=== PATIENT | male | born 1945 | race Caucasian/White ===

== ENCOUNTER → 2017-10-08 17:28 | Outpatient (CLI) | payer MEDICARE, MEDICAID, SELFPAY ==
[2017-10-07 13:57] LABS: Anion Gap 8 (5-15); BUN 14 mg/dL (7-18); BUN/Creat Ratio 16.8 RATIO (10-20); Calcium,Total 8.9 mg/dL (8.5-10.1); Chloride 106 mmol/L (98-107); Creatinine, Serum 0.83 mg/dL (0.70-1.30); EST Glomerular Filtration Rate 96 mL/min (>60); Est Glom Filt Rate - Afr Amer 116 mL/min (>60); Glucose 92 mg/dL (74-106); Magnesium 2.4 mg/dL (1.6-2.6); Potassium 3.6 mmol/L (3.5-5.1); Sodium Level 141 mmol/L (136-145)
--- NOTE | 2017-10-08 17:30 | CT_ITS ---
STUDY: CTA CHEST REASON FOR EXAM: Male, 72 years old. TAA RADIATION DOSAGE (If Supplied By Facility): CTDIvol = ( 12.29 ) mGy, DLP = ( 625.12 ) mGycm TECHNIQUE: The examination was performed with the intravenous administration of 100ML ml of Isovue 370 contrast material. Post-processing of the angiographic images was performed, with multiplanar reformation and 3D reconstruction. Individualized dose optimization techniques were used for this CT. COMPARISON: April 16, 2017 FINDINGS: There is no pneumothorax. There are emphysematous changes of the lungs with emphysematous blebs. There is no demonstrated pleural abnormality. The thyroid is heterogenous. It contains nodules. This should be further evaluated with ultrasound. This can be performed as an outpatient. Stable left pleural scarring. Normal heart and pericardium. Normal mediastinum. Normal hilar regions. Normal pulmonary arteries. There is atherosclerotic calcification of the aortic arch with tortuosity and elongation of the aortic arch and descending thoracic aorta. Stable aneurysmal dilation of the ascending thoracic aorta measuring 39 mm There are multi-level degenerative changes of the thoracic spine. There is diffuse fatty infiltration of the liver. CT/CTA Chest W/WO Contrast IMPRESSION: No demonstrated pulmonary embolism or arterial dissection. Fatty liver. The thyroid is heterogenous. It contains nodules. This should be further evaluated with ultrasound. This can be performed as an outpatient. Electronically Signed: Issa Flores MD at 18:53 EST , Service support ,
== END ==
PROVIDERS: Family Provider Preventive Medicine Occupational Medicine; PCP Preventive Medicine Occupational Medicine
DX: I71.2 Thoracic aortic aneurysm, without rupture (principal); E83.42 Hypomagnesemia
CPT/HCPCS: 36415; 71275; 80048; 83735; Q9967

== ENCOUNTER → 2018-02-03 10:27 | Outpatient (CLI) | payer MEDICARE, MEDICAID, SELFPAY ==
[2018-02-03 11:23] LABS: PSA,Total- Diagnostic < 0.01 ng/mL (0.0-4.0)
== END ==
PROVIDERS: Family Provider Preventive Medicine Occupational Medicine; PCP Preventive Medicine Occupational Medicine; Visit Provider Urology
DX: C61 Malignant neoplasm of prostate (principal)
CPT/HCPCS: 36415; 84153

== ENCOUNTER → 2018-04-15 14:23 | Outpatient (CLI) | payer MEDICARE, MEDICAID, SELFPAY ==
[2018-04-15 15:11] LABS: Hematocrit 43.1 % (40-54); Hemoglobin 14.3 g/dl (13.0-16.5); Mean Corp Hgb Conc 33.2 g/gl (32-36); Mean Corpuscular Hgb 32.6 pg (27.0-32.0); Mean Corpuscular Volume 98.2 fL (80-94); Mean Platelet Vol. 11.7 fl (6.2-12.0); Platelet Count 206 K/mm3 (150-450); RBC Distribution Width CV 13.2 % (11.6-14.6); RBC Distribution Width SD 46.8 fl (35.1-43.9); Red Blood Count 4.39 M/mm3 (4.6-6.2); White Blood Count 8.6 K/mm3 (4.4-11.0)
[2018-04-15 15:18] LABS: Scan Indicated on CBC? Y/N NO
[2018-04-15 15:37] LABS: Anion Gap 12 (5-15); BUN 10 mg/dL (7-18); BUN/Creat Ratio 12.2 RATIO (10-20); Calcium,Total 8.6 mg/dL (8.5-10.1); Chloride 107 mmol/L (98-107); Creatinine, Serum 0.82 mg/dL (0.70-1.30); EST Glomerular Filtration Rate 97 mL/min (>60); Est Glom Filt Rate - Afr Amer 117 mL/min (>60); Glucose 83 mg/dL (74-106); Potassium 3.7 mmol/L (3.5-5.1); Sodium Level 144 mmol/L (136-145)
== END ==
PROVIDERS: Family Provider Preventive Medicine Occupational Medicine; PCP Preventive Medicine Occupational Medicine
DX: F11.20 Opioid dependence, uncomplicated (principal)
CPT/HCPCS: 36415; 80048; 83735; 85027

== ENCOUNTER → 2018-05-19 14:18 | Outpatient (CLI) | payer MEDICARE, MEDICAID, SELFPAY ==
[2018-05-23 09:07] LABS: Alternaria alternata <0.10 kU/L (Class 0); Aspergillus fumigatus <0.10 kU/L (Class 0); Bahia Grass <0.10 kU/L (Class 0); Bermuda Grass <0.10 kU/L (Class 0); Bluegrass, Kentucky <0.10 kU/L (Class 0); Cat Hair/Dander, Standard <0.10 kU/L (Class 0); Cedar, Mountain <0.10 kU/L (Class 0); Cladosporium herbarum <0.10 kU/L (Class 0); Cockroach, American <0.10 kU/L (Class 0); D farinae Mite <0.10 kU/L (Class 0); D pteronyssinus <0.10 kU/L (Class 0); Dog Epithelia <0.10 kU/L (Class 0); Elm, American White <0.10 kU/L (Class 0); Hazelnut Tree <0.10 kU/L (Class 0); Hickory, White <0.10 kU/L (Class 0); Johnson Grass <0.10 kU/L (Class 0); Maple/Box Elder <0.10 kU/L (Class 0); Mucor racemosus <0.10 kU/L (Class 0); Mugwort <0.10 kU/L (Class 0); Mulberry, White <0.10 kU/L (Class 0); Oak, White <0.10 kU/L (Class 0); Penicillium chrysogen <0.10 kU/L (Class 0); Pigweed, Rough <0.10 kU/L (Class 0); Plantain, English <0.10 kU/L (Class 0); Ragweed, Short/Common <0.10 kU/L (Class 0); Sheep Sorrel(Dock) <0.10 kU/L (Class 0); Stemphylium herbarum <0.10 kU/L (Class 0); Sweet Gum <0.10 kU/L (Class 0); Sycamore, American <0.10 kU/L (Class 0)
[2018-05-23 11:31] LABS: Nettle <0.10 kU/L (Class 0)
== END ==
PROVIDERS: Family Provider Preventive Medicine Occupational Medicine; PCP Preventive Medicine Occupational Medicine; Referring Provider Internal Medicine Pulmonary Disease; Visit Provider Internal Medicine Pulmonary Disease
DX: T78.40XA Allergy, unspecified, initial encounter (principal); J44.9 Chronic obstructive pulmonary disease, unspecified
CPT/HCPCS: 36415; 86003

== ENCOUNTER → 2018-07-27 15:25 | Outpatient (CLI) | payer MEDICARE, MEDICAID, SELFPAY ==
[2018-07-27 17:20] LABS: PSA,Total- Diagnostic < 0.01 ng/mL (0.0-4.0)
== END ==
PROVIDERS: Family Provider Preventive Medicine Occupational Medicine; PCP Preventive Medicine Occupational Medicine; Referring Provider Urology; Visit Provider Urology
DX: C61 Malignant neoplasm of prostate (principal)
CPT/HCPCS: 36415; 84153

== ENCOUNTER → 2018-10-20 12:47 | Outpatient (CLI) | payer MEDICARE, MEDICAID, SELFPAY ==
--- NOTE | 2018-10-20 12:53 | CT_ITS ---
STUDY: CTA CHEST REASON FOR EXAM: Male, 73 years old. Aortic aneurysm follow-up. RADIATION DOSAGE (If Supplied By Facility): CTDIvol = ( 21.38 ) mGy, DLP = ( 501.01 ) mGycm TECHNIQUE: The examination was performed with the intravenous administration of Isovue 370 100 IV. Post-processing of the angiographic images was performed, with multiplanar reformation and 3D reconstruction. Individualized dose optimization techniques were used for this CT. COMPARISON: 04/16/2017, 10/08/2017.. FINDINGS: Normal enhancement of the main pulmonary artery and right and left pulmonary arteries. Normal enhancement of the bilateral peripheral pulmonary arteries. There is no demonstrated pulmonary embolism. Continued, but stable ectasia of the SMA aorta with greatest diameter of approximately 4 cm. There is no demonstrated aortic dissection. Normal heart and pericardium. Normal mediastinum. Normal hilar regions. Normal visualized trachea and bronchi. The lungs are hyper expanded, with flattening of the hemidiaphragms. There is evidence for centrilobular emphysema. There is a new 1.3 cm somewhat spiculated density in the left apex, coronal image 179 and axial image 222. A small neoplasm is a possibility. Suggest further evaluation such as PET scan. Stable 7 mm microspiculated nodule also in the superior segment of the left lower lobe, axial image 198. Stable focal areas of linear vertical scarring in the medial right lower lobe. No effusions. Normal chest wall structures. There are degenerative changes of thoracic spine. There is demineralization. There is ankylosis across the thoracic spine. Normal visualized upper abdomen. CT/CTA Chest W/WO Contrast IMPRESSION: Normal CTA chest examination, without a demonstrated pulmonary embolism or arterial dissection. Stable ectasia of the ascending aorta. COPD. Suspicious 1.3 cm spiculated nodule on the left apex. Suggest further evaluation such as PET scan. Electronically Signed: Remy Salinas MD at 15:53 EST , Service support ,
== END ==
PROVIDERS: Family Provider Preventive Medicine Occupational Medicine; PCP Preventive Medicine Occupational Medicine; Referring Provider Nurse Practitioner Family; Visit Provider Nurse Practitioner Family
DX: I71.2 Thoracic aortic aneurysm, without rupture (principal)
CPT/HCPCS: 71275; Q9967

== ENCOUNTER → 2018-10-29 07:04 | Outpatient (CLI) | payer MEDICARE, MEDICAID, SELFPAY ==
--- NOTE | 2018-10-29 08:00 | PET_ITS ---
EXAMINATION: FDG PET CT INDICATIONS: A 73-year-old male with reported history of carcinoma of the prostate presenting for restaging examination and evaluation of pulmonary nodularity. COMPARISON EXAMINATION: CT of the chest report dated 10/20/18. INDEX LESION SIZE SUV INTERPRETATION Right lower posterior lung field, right lower lobe (n = 1) 0.9 Quantitative criteria for viable neoplasm are not fulfilled TECHNIQUE: Following the intravenous administration of 18.15 mCi of F-18 deoxyglucose via the right antecubital fossa, multiplanar image acquisitions of the neck, chest, abdomen and pelvis to level of mid thigh, obtained at one hour post radiopharmaceutical administration contemporaneously interpreted with the current CT of the neck, chest, abdomen and pelvis to level of mid thigh, dated 10/29/[address] of the chest report dated 10/20/18 reveal: SERUM GLUCOSE LEVEL: 88 mg/dl. HEIGHT: 65 inches. WEIGHT: 175 lbs. FINDINGS: 1. Barely perceptible increased glucose metabolism is defined in the right lower posteromedial hemithorax pulmonary parenchyma, right lower lobe generating a calculated maximum standard uptake value of 0.9. Quantitative criteria for viable pulmonary parenchymal neoplasm are not fulfilled. 2. Normal physiologic distribution of the radiopharmaceutical is apparent in the hepatic (3.3) and splenic parenchyma, both renal units, bladder and visualized intestinal tract. There is uniform distribution of the radiopharmaceutical concentration defined in the visualized cerebellar hemispheres and cerebral cortical structures.? Diffuse intestinal tract activity is noted throughout all four quadrants of the abdominal-pelvic retroperitoneum, mesentery consistent with normal physiologic distribution of the radiopharmaceutical. Prominent radiopharmaceutical concentration is noted caudal to the urinary bladder contiguous to the distribution of the prostatic urethra. Pertinent CT findings are as follows. CHEST: Noncalcified parenchymal densities noted in the superior segment of the left lower lobe in two separate nodular presentations adjacent and in proximity to the oblique fissure, the right mid posteromedial lung field, right upper lobe and the posterobasilar segment of the right lower lobe demonstrate no evidence of quantitatively significant, discernible increased glucose metabolism. Atherosclerotic calcification is defined in the thoracic aorta. The maximal axial diameter of the ascending thoracic aorta is 41.1 mm (AP). Coronary arterial calcification is observed. Centrilobular emphysematous change is noted in the bilateral upper lung zones. ABDOMEN AND PELVIS: Atherosclerotic calcification is defined in the abdominal aorta without evidence of dilatation, aneurysm formation. Pelvic arterial calcification is observed. Bilateral subcentimeter inguinal soft tissue densities are non-glucose avid. Postsurgical changes are defined in the lower pelvis in the region of the prostate bed. Colonic diverticulosis is defined. SKELETAL: Degenerative changes defined in the cervical, thoracic and lumbar spine demonstrate no evidence for glucose hypermetabolism. PET/PET/CT Tumor Base -Thigh Init IMPRESSION: 1. NEGATIVE EXAMINATION. There is no definitive quantitative scintigraphic evidence of recurrent-metastatic viable neoplasm. 2. Barely perceptible increased glucose concentration observed in the right lower posterior lung zone, right lower lobe does not fulfill quantitative criteria for viable neoplasm. (Lucas et al, Annals of Internal Medicine, 138:724, 2003). 3. Metabolic and/or anatomic stability may be ensured in the right hemithorax pulmonary parenchymal abnormality with repeat FDG PET study and/or CT of the thorax in 3-6 months in addition to evaluation of non-glucose avid parenchymal densities additionally defined. (Xiu, Journal of Nuclear Medicine 45:88, P2004. Marcelo, Seminars in Thoracic and Cardiovascular Surgery 14:292, 2002). Electronic Signature Nils Perrin D.O. Electronically Signed: Nils Perrin DO at 23:38 EDT Tel , Service support ,
== END ==
PROVIDERS: Family Provider Preventive Medicine Occupational Medicine; PCP Preventive Medicine Occupational Medicine; Referring Provider Nurse Practitioner Family; Visit Provider Nurse Practitioner Family
DX: R91.8 Other nonspecific abnormal finding of lung field (principal)
CPT/HCPCS: 78815; A9552

== ENCOUNTER → 2019-01-24 16:17 | Outpatient (CLI) | payer MEDICARE, MEDICAID, SELFPAY ==
[2019-01-24 17:50] LABS: PSA,Total- Diagnostic < 0.01 ng/mL (0.0-4.0)
== END ==
PROVIDERS: Family Provider Preventive Medicine Occupational Medicine; PCP Preventive Medicine Occupational Medicine; Referring Provider Urology; Visit Provider Urology
DX: C61 Malignant neoplasm of prostate (principal)
CPT/HCPCS: 36415; 84153

== ENCOUNTER 2019-04-26 19:58 | Inpatient (IN) | payer MEDICARE, MEDICAID, SELFPAY ==
[2019-04-26] VITALS (9 sets, daily range): BP systolic 126–134; BP diastolic 70–76; PULSE 78–93; RESP 14–28; TEMP 36.7; O2SAT 94–98; BMI 30.9
--- NOTE | 2019-04-26 20:18 | EKG12_ITS ---
Test Reason : Blood Pressure : / mmHG Vent. Rate : 081 BPM Atrial Rate : 081 BPM P-R Int : 128 ms QRS Dur : 068 ms QT Int : 362 ms P-R-T Axes : 037 035 064 degrees QTc Int : 420 ms Normal sinus rhythm Normal ECG Confirmed by IFEOMA PARIKH ([id number]), editor farm journal CAMELIA THEODORE ([id number]) on 05/01/2019 2:40:39 PM Referred By: Krzysztof Bach Confirmed By:IFEOMA PARIKH
--- NOTE | 2019-04-26 20:18 | RAD_ITS ---
STUDY: X-RAY CHEST REASON FOR EXAM: Male, 74 years old. Short of breath TECHNIQUE: AP portable COMPARISON: None. FINDINGS: Lungs are hyperinflated. There appears to be some minor scarring or subsegmental atelectasis in the right middle lobe. There is no demonstrated pleural abnormality. Normal size heart. Normal mediastinum and renay. Normal visualized pulmonary arteries. Normal visualized aortic arch and descending thoracic aorta. Normal visualized thoracic spine. Normal visualized ribs, clavicles, and shoulders. There is no demonstrated abnormality of the visualized soft tissue structures of the upper abdomen. RAD/Chest 1 View (Portable) IMPRESSION: COPD. Minor subsegmental atelectasis or scarring in the right middle lobe Electronically Signed: Frederick Awad MD at 20:55 EDT , Service support ,
[2019-04-26 20:33] LABS: Absolute Lymphocyte Count 0.77 X10^3/uL (0.83-4.51); Absolute Neutrophil Count 11.1 X10^3/uL (2.0-7.7); Basophil# 0.03 X10^3/uL; Basophil% 0.2 % (0-1); Eosinophil# 0.05 X10^3/uL; Eosinophils% 0.4 % (0-5); Hematocrit 46.9 % (40-54); Hemoglobin 15.6 g/dL (13.0-16.5); Lymphocyte # 0.77 X10^3/ul (4.0); Lymphocyte % 6.1 % (19-41); Mean Corp Hgb Conc 33.3 g/dL (32-36); Mean Corpuscular Hgb 32.2 pg (27.0-32.0); Mean Corpuscular Volume 96.7 fL (80-94); Mean Platelet Vol. 11.8 fl (6.2-12.0); Monocyte% 4.7 % (0-10); NRBC Flagged by Analyzer 0 % (0-5); Neutrophil # 11.09 X10^3/uL (2.7-7.7); Neutrophil % 87.8 % (47-70); Platelet Count 208 K/mm3 (150-450); RBC Distribution Width CV 13.3 % (11.6-14.6); RBC Distribution Width SD 47.8 fl (35.1-43.9); Red Blood Count 4.85 M/mm3 (4.6-6.2); White Blood Count 12.6 K/mm3 (4.4-11.0)
[2019-04-26 20:46] LABS: Anion Gap 6 (5-15); BUN 12 mg/dL (7-18); BUN/Creat Ratio 11.8 RATIO (10-20); Calcium,Total 8.6 mg/dL (8.5-10.1); Chloride 104 mmol/L (98-107); Creatinine, Serum 1.02 mg/dL (0.70-1.30); EST Glomerular Filtration Rate 75 mL/min (>60); Est Glom Filt Rate - Afr Amer 91 mL/min (>60); Estimated Creatinine Clearance 53.59 ml/min; Glucose 109 mg/dL (74-106); International Normalized Ratio 0.9; Potassium 3.5 mmol/L (3.5-5.1); Prothrombin Time (Protime)PT. 12.4 SECONDS (11.7-14.9); Sodium Level 139 mmol/L (136-145)
[2019-04-26] MEDS: Ipratropium/Albuterol Sulfate 3 ML AMPUL.NEB INHALATION (22:03)
[2019-04-26] MEDS: Albuterol 2.5 MG/3 ML VIAL.NEB. INHALATION (22:53)
--- NOTE | 2019-04-26 23:44 | ED.DCSUM_ITS ---
- ER Visit Summary Date of Service: 04/26/19 Chief Complaint: Shortness of breath History of Present Illness: The patient is a 74 M who presents with shortness of breath that began today. Patient has a history of COPD. Patient states she was feeling tightness in his chest. Patient states that he is on oxygen at home. Patient states he started feeling short of breath and took an aerosol at home. Patient states he also took 10 mg of prednisone at that time. Patient states that he was not feeling better so he took 20 mg of prednisone and another aerosol. Patient states this did not help much. Patient called EMS. EMS administered Solu-Medrol 125 mg IV. Patient admits to some chest tightness but denies any specific pain. Patient denies any fevers or chills. Physical Examination: Vital signs are stable except for mild tachypnea of 28. Patient is afebrile. Oral mucosa is pink and moist. Neck is supple. Trachea is midline. There is no JVD noted. Heart was regular rate and rhythm. Lungs showed diffuse expiratory wheezing. There is good respiratory effort noted. Abdomen is soft and nontender. Cranial nerves II through XII are intact. There are no focal motor or sensory deficits noted. Test Results: EKG showed normal sinus rhythm with a rate of 81. There are no acute ST or T wave changes. Portable chest x-ray was obtained. There is COPD and atelectasis versus scarring in the right middle lobe. CBC shows mild leukocytosis of 12.6. Metabolic profile is normal. INR is normal. Troponin is normal. Emergency Department Course and Treatment: Patient was given a DuoNeb aerosol here. Patient was placed on oxygen which she is on at home. Patient had some improvement with this. Patient was given a repeat albuterol aerosol. Patient states he was feeling better on reevaluation. Patient was ambulated here in the emergency department and had a near syncopal episode while ambulating. Patient states that shortness of breath became worse again. Case was discussed with the hospitalist. He will admit the patient to his service. Patient and family understood and were agreeable with the plan. All questions were answered Disposition: Admit to hospital Impression: COPD exacerbation This note was generated with [employer] dictation software. It may contain incorrect words, spelling, and punctuation that were not noted in review of the chart prior to signing ED Disposition - Plan for ED Patient: Disposition: Acute Care Hospital [facility] Diagnosis: COPD exacerbation Referrals: Joe Day DO [Primary Care Provider] -
--- NOTE | 2019-04-26 23:45 | PCM.HP.STD ---
Problem List (1) COPD exacerbation Status: Chronic History of Present Illness Date of Admission: 04/26/19 Chief Complaint: shortness of breath The patient is a 74 year old M with a significant history of COPD on vjhjek-fhv-hbifd oxygen of 2 L and on CPAP with oxygen bled in at night; who prostate cancer status post radiation; and aortic aneurysm who presented to emergency department with 1 day history of progressively worsening shortness of breath. Associated with her symptoms is a chest pain. Also patient check his heart rate of a pulse ox machine and noticed that his heart rate was elevated. He reported his heart rate was 137. Patient took a couple of breathing treatment at home. And although he was on a tapered dose of prednisone 10 mg daily he took an additional 20 mg of his steroid. Shortness of breath worsens when he bends down or when he minimally exert himself. Patient denies any wheezing. He has a chronic productive cough of white sputum. Paramedics brought patient to the emergency department. Paramedics gave patient Solu-Medrol 125 mg. Reportedly patient was started on Daliresp about a week ago. Patient pulmonology is Dr. Flores. Past Medical History Past Medical History (Chronic Problems): Chronic Problems COPD exacerbation (Chronic) COPD (chronic obstructive pulmonary disease) (Chronic) Home oxygen for 5 years. Hypertension (Chronic) Allergic rhinitis (Chronic) Anxiety (Chronic) Hypomagnesemia (Chronic) GERD (gastroesophageal reflux disease) (Chronic) BPH (benign prostatic hypertrophy) (Chronic) Vitamin D deficiency (Chronic) Thoracic aortic aneurysm without rupture (Chronic) 4.3CM. Allergies No Known Allergies Allergy (Verified 04/26/19 19:59) Home Medications: Ambulatory Orders Medication Instructions Recorded Aspirin [Aspirin, Baby] 81 mg PO DAILY@0800 10/13/16 Omeprazole 20 mg PO PRN PRN 10/13/16 Albuterol Aerosols [Ventolin 2.5 mg INHALATION Q2H PRN PRN #0 10/21/16 Aerosols] vial.neb. Ascorbic Acid [Vitamin C] 1,000 mg PO DAILY 03/29/17 Cyanocobalamin (Vitamin B-12) 2,500 mcg PO DAILY 03/29/17 [Vitamin B-12] Finasteride [Proscar] 5 mg PO DAILY 03/29/17 Guaifenesin [Mucinex] 600 mg PO DAILY 03/29/17 Multivitamin [Daily Multiple 1 each PO DAILY 03/29/17 Vitamin] Prednisone 10 mg PO PRN PRN 03/29/17 Fluticasone/Vilanterol [Breo 1 puff IH DAILY 04/26/19 Ellipta 200-25 Mcg INH] Furosemide [Lasix] 20 mg PO DAILY 04/26/19 Lorazepam [Ativan] 0.5 mg PO BID PRN PRN 04/26/19 Roflumilast [Daliresp] 500 mcg PO DAILY 04/26/19 Umeclidinium Skillman [Incruse 1 puff IH DAILY 04/26/19 Ellipta] busPIRone [Buspar] 15 mg PO TID 04/26/19 Surgical History: - - knee surgery, prostate surgery. Psychiatric History: Anxiety Smoking Status: Current every day smoker - *Family History Maternal History Items: Cancer - Breast, Diabetes Paternal History Items: Cancer - Prostate, Diabetes Review of Systems Constitutional: Denies: Chills, Fever, Weight Change HEENT: Denies: Head Aches, Sinus Congestion, Sinus Drainage Cardiovascular: Reports: Chest Pain. Denies: Palpitations Respiratory: Reports: Cough - Chronic, Shortness of Breath, Sputum production - Chronic white sputum Gastrointestinal: Reports: Abdominal Pain. Denies: Nausea, Vomiting Genitourinary: Denies: Dysuria Musculoskeletal: Denies: Joint Pain, Joint Tenderness Skin: Denies: Rash, Wounds Neurological: Denies: Numbness, Tingling, Focal weakness Psychiatric: Reports: Anxiety, Depression. Denies: Homicidal Ideations, Suicidal Ideations Hematologic/ Lymphatic: Denies: Easy Bruising, Easy Bleeding VTE Information - Inpt Only VTE Present on Admission: No VTE Mechan Device Prophylaxis: None VTE Pharm Prophylaxis ordered?: Yes - Physical Exam General: Alert, Oriented x3, Cooperative HEENT: Atraumatic, PERRLA, EOMI, Normocephalic Neck: Supple, No JVD, Negative Carotid Bruits Lungs: Clear to auscultation, Diminished Cardiovascular: Regular rate, No murmurs Abdomen: Bowel Sounds Present, Soft, Non Tender Extremities: No edema, Capillary Refill Less than 3 Seconds Skin: No rashes, No breakdown Musculoskeletal: No Tenderness to Palpation of Joints or Extremities Neurological: Cranial nerves II-XII grossly intact Psych/Mental Status: Normal Affect, Appropriate Vital Signs Temp Pulse Resp BP Pulse Ox 98.1 F 88 18 126/70 H 96 04/26/19 20:05 04/26/19 22:54 04/26/19 22:54 04/26/19 22:09 04/26/19 22:09 Oxygen Flow Rate (L/min) 2 Oxygen Delivery Method Nasal Cannula Weight: 84.2 kg Body Mass Index (BMI) 30.9 Laboratory Tests Past 24 Hrs 04/26/19 04/26/19 04/26/19 20:07 20:07 20:07 WBC 12.6 H RBC 4.85 Hgb 15.6 Hct 46.9 MCV 96.7 H MCH 32.2 H MCHC 33.3 RDW Std Deviation 47.8 H RDW Coeff of Amee 13.3 Plt Count 208 MPV 11.8 Immature Gran % (Auto) 0.800 Neut % (Auto) 87.8 H Lymph % (Auto) 6.1 L Guthrie % (Auto) 4.7 Eos % (Auto) 0.4 Baso % (Auto) 0.2 Absolute Neuts (auto) 11.1 H Absolute Lymphs (auto) 0.77 L Nucleated RBC % 0 PT 12.4 INR 0.9 Sodium 139 Potassium 3.5 Chloride 104 Carbon Dioxide 29.0 Anion Gap 6 BUN 12 Creatinine 1.02 Estim Creat Clear Calc 53.59 Est GFR (MDRD) Af Amer 91 Est GFR (MDRD) Non-Af 75 BUN/Creatinine Ratio 11.8 Glucose 109 H Calcium 8.6 Troponin I < 0.015 Assessment/Plan All Active Problems Acute hypoxemic respiratory failure (Acute) Pseudomonas pneumonia (Ruled-out) The patient is a 74 year old M with a significant history of COPD on ajywrg-gtd-ijhws oxygen of 2 L and on CPAP with oxygen bled in at night; who prostate cancer status post radiation; and aortic aneurysm who presented to emergency department with 1 day history of progressively worsening shortness of breath consistent with acute extubation of COPD. Acute intubation COPD Patient received multiple doses of breathing treatments. Continue patient on scheduled breathing treatment. Took a total of 30 mg of prednisone before presentation and was given Solu-Medrol 125 mg. Continue patient on Solu-Medrol 40 mg every 8 hours. Albuterol as needed. Daliresp was continued Mucinex continued CPAP nightly with oxygen bled again. GERD Protonix continued BPH Finasteride continued Anxiety depression Buspirone continued DVT prophylaxis Subcutaneous Lovenox Code Visit Inpatient E&M: 71112 Init Hosp L3
--- NOTE | 2019-04-26 23:48 | ED.RN ---
DURING WALK TEST PATIENT BECAME VERY DIZZY AND STATES HE FEELS HIS LUNGS ARE COLLAPSING. MD NOTIFIED PT DID NOT TOLERATE WALK TEST WELL
[2019-04-27] VITALS (14 sets, daily range): BP systolic 117–128; BP diastolic 52–82; PULSE 72–106; RESP 18–24; TEMP 36.6–37.1; O2SAT 95–100; BMI 29.2; BMI 29.3
[2019-04-27] MEDS: LORazepam 0.5 MG Tablet PO ×2 (02:20→14:56)
[2019-04-27] MEDS: Pantoprazole Sodium 20 MG Tablet PO (03:59)
[2019-04-27 05:47] LABS: Absolute Lymphocyte Count 0.35 X10^3/uL (0.83-4.51); Absolute Neutrophil Count 9.2 X10^3/uL (2.0-7.7); Basophil# 0.01 X10^3/uL; Basophil% 0.1 % (0-1); Hematocrit 43.3 % (40-54); Hemoglobin 14.5 g/dL (13.0-16.5); Lymphocyte # 0.35 X10^3/ul (4.0); Lymphocyte % 3.5 % (19-41); Mean Corp Hgb Conc 33.5 g/dL (32-36); Mean Corpuscular Hgb 31.5 pg (27.0-32.0); Mean Corpuscular Volume 94.1 fL (80-94); Mean Platelet Vol. 11.3 fl (6.2-12.0); NRBC Flagged by Analyzer 0 % (0-5); Neutrophil # 9.19 X10^3/uL (2.7-7.7); Neutrophil % 93.3 % (47-70); POSITIVE DIFFERENTIAL YES; POSITIVE MORPHOLOGY YES; Platelet Count 212 K/mm3 (150-450); RBC Distribution Width CV 13.2 % (11.6-14.6); RBC Distribution Width SD 45.6 fl (35.1-43.9); White Blood Count 9.9 K/mm3 (4.4-11.0)
[2019-04-27] MEDS: busPIRone 15 MG TABLET PO ×3 (05:55→21:04)
[2019-04-27 06:00] LABS: Differential Indicated SCAN CRITERIA MET
[2019-04-27 06:20] LABS: Differential Comment SCANNED
[2019-04-27 06:32] LABS: Anion Gap 8 (5-15); BUN 16 mg/dL (7-18); Calcium,Total 8.6 mg/dL (8.5-10.1); Chloride 107 mmol/L (98-107); Creatinine, Serum 1.07 mg/dL (0.70-1.30); EST Glomerular Filtration Rate 71 mL/min (>60); Est Glom Filt Rate - Afr Amer 86 mL/min (>60); Estimated Creatinine Clearance 51.09 ml/min; Glucose 184 mg/dL (74-106); Potassium 4.5 mmol/L (3.5-5.1); Sodium Level 141 mmol/L (136-145)
[2019-04-27] MEDS: Ipratropium/Albuterol Sulfate 3 ML AMPUL.NEB INHALATION ×5 (07:02→23:12)
[2019-04-27] MEDS: Aspirin 81 MG TAB.CHEW PO (07:58)
[2019-04-27] MEDS: Enoxaparin 40 MG/0.4 ML Syringe SC (07:58)
[2019-04-27] MEDS: Furosemide 20 MG Tablet PO (07:58)
[2019-04-27] MEDS: guaiFENesin 600 MG Tablet PO (07:58)
[2019-04-27] MEDS: Cyanocobalamin 500 MCG Tablet 2500 MCG PO (09:48)
[2019-04-27] MEDS: Ascorbic Acid 500 MG Tablet 1000 MG PO (09:48)
[2019-04-27] MEDS: ROFLUMILAST 500 MCG TABLET PO (09:48)
[2019-04-27] MEDS: Finasteride 5 MG Tablet PO (09:48)
--- NOTE | 2019-04-27 11:39 | CASEMGMT ---
Social Work Note Per parts identifier questions pt is not sure if he has completed Living Will but has completed HCPOA and provided copy to [facility]. SW reviewed pt's chart and found pt's HCPOA. SW printed HCPOA and placed on pt's chart. Gisselle Knight INSURANCE COUNSELOR, STRIP FEEDER
--- NOTE | 2019-04-27 13:55 | CASEMGMT ---
MESHA CARRANZA Assessment Presentation: COPD exacerbation Intro role of CM and purpose of RN CM assessment to patient in room. Pt is awake, alert and able to participate in assessment. Demographics, PCP and Pharmacy verified. Pt states he has been having increasing difficulty at home with ADL, including showering and cleaning home. States his SO spoke with him re: Passport services. MESHA CARRANZA discussed Skilled HHS and general Passport information. Pt is agreeable to both, states I guess now I better get all the help I can. Pt states he is a bit of a hoarder. States he tends to save things, especially clothes. MESHA CARRANZA asked if main areas where he would walk through home and to bathroom are cleared and his states for the most part. RN DILLON stressed importance of having walkways/bathroom cleared of any cluttering for safety, fall risk. PCP: Dr. Day Specialists: Dr. Flores Preferred [facility]acy[facility] in [place], [place]. Entered into chart. Insurance: [facility] Prescription Benefit: yes LNOK: Daughter, Eileen Stoll Living Arrangements: Lives in one story home. Able to ambulate around home, uses walker intermittently. Difficulty with home care, cleaning and showering- pt states I can't reach everything anymore. Pt states he uses electric carts at stores when available. Makes own meals. Transportation: drives. DME: WW, cane, shower chair, Cpap, Oxygen through [facility]: concentrator, portable tanks, nebulizer HHC: [facility] given to pt after explanation of skilled home care services including recommendation for nurse, aide, PT/OT and SW. List given to pt. He requests the agency I had when I left [facility] last time, this was [facility]. Call to Lilian @ [facility] who states they can accept pt on dc. -Order placed for [facility] RN/PT/OT/AIDE/SW SW referral: information on meals, Passport services. Patient DC goals: Home DC PLAN: Home with [facility]. MESHA CARRANZA informed pt to contact CM if concerns/needs for dc arise. Annabel ANNA RN ACM
--- NOTE | 2019-04-27 14:12 | CASEMGMT ---
As per CM and PT, pt would like information on private aides, Passport and Meals on Wheels. SW met w/pt in room. SW gave pt information on private hire aides. SW then spoke w/pt about Passport. Pt thinks that his girlfriend Kaleigh did call already about this, but was not certain. Pt called her on the phone, SW spoke w/Kaleigh. She explains that nobody has come to assess pt at home yet but that she did call. SW explained will fax in another referral. She asked about help now, SW explained that we will get home health care set up for him. SW then spoke w/pt about Meals on Wheels, pt agreeable to this referral also. Pt then spoke about his family, his mother and brothers, and his own health issues. Supportive listening provided. SW faxed referral to [facility] for Passport, and referral faxed to Meals on Wheels. CM setting up home care for pt. Carolyne did ask for a male aide at home, however [facility], pt's preference for home health, does not have any male aides. SW remains available should any additional social service needs arise. SANDRA Ortiz
[2019-04-27] MEDS: 0.9% NaCl Peripheral Flush Adult/Peds IV ×2 (14:51→21:04)
--- NOTE | 2019-04-27 19:16 | CPS ---
Patients own CPAP set up at this time with 2l/m bleed in.
--- NOTE | 2019-04-27 20:08 | PN_ITS ---
Subjective: Patient was seen and examined today, he does not appear to be in any respiratory distress, patient states though that when he does any exertional activity at all he becomes extremely short of breath. Patient appears to be stable at this time at rest on his home O2 setting which is 2 L. On examination today, patient's lungs reveal diminished breath sounds bilaterally-no rhonchi or wheezes were noted and he does not appear to be tachypneic. - Physical Exam General: Alert, Oriented x3, Cooperative, No apparent distress, Well developed HEENT: Atraumatic, PERRLA, EOMI, Normocephalic Oral: Moist Mucosa Neck: Supple, Trachea Midline, Thyroid Normal Size and Texture Lungs: Clear to auscultation, No rhonchi, No wheeze, No rales, Diminished Cardiovascular: Regular rate, Regular Rhythm, Normal S1, Normal S2, No murmurs Abdomen: Bowel Sounds Present, Soft, Non Tender, Non-Distended Extremities: No clubbing, No cyanosis, No edema, Capillary Refill Less than 3 Seconds Skin: No rashes, No breakdown Musculoskeletal: No Tenderness to Palpation of Joints or Extremities Neurological: Cranial nerves II-XII grossly intact, Neuro grossly intact, Sensory exam intact to light touch and pain, Coordination normal Psych/Mental Status: Normal Affect, Appropriate, Alert and oriented to time, place, person, mood and affect Vital Signs Temp Pulse Resp BP Pulse Ox 98.7 F 103 H 18 122/52 H 98 04/27/19 15:31 04/27/19 18:49 04/27/19 18:49 04/27/19 15:31 04/27/19 15:31 Oxygen Flow Rate (L/min) 2 Oxygen Delivery Method Nasal Cannula Weight: 79.9 kg Body Mass Index (BMI) 29.2 Intake and Output for Last 24 Hours 04/25/19 04/26/19 04/27/19 23:59 23:59 23:59 Intake Total 950 / 950 Output Total 225 / 225 Balance 725 / 725 Laboratory Tests Past 24 Hrs 04/26/19 04/26/19 04/26/19 20:07 20:07 20:07 WBC 12.6 H RBC 4.85 Hgb 15.6 Hct 46.9 MCV 96.7 H MCH 32.2 H MCHC 33.3 RDW Std Deviation 47.8 H RDW Coeff of Amee 13.3 Plt Count 208 MPV 11.8 Immature Gran % (Auto) 0.800 Neut % (Auto) 87.8 H Lymph % (Auto) 6.1 L [place] % (Auto) 4.7 Eos % (Auto) 0.4 Baso % (Auto) 0.2 Absolute Neuts (auto) 11.1 H Absolute Lymphs (auto) 0.77 L Nucleated RBC % 0 Differential Comment PT 12.4 INR 0.9 Sodium 139 Potassium 3.5 Chloride 104 Carbon Dioxide 29.0 Anion Gap 6 BUN 12 Creatinine 1.02 Estim Creat Clear Calc 53.59 Est GFR (MDRD) Af Amer 91 Est GFR (MDRD) Non-Af 75 BUN/Creatinine Ratio 11.8 Glucose 109 H Calcium 8.6 Troponin I < 0.015 04/27/19 04/27/19 05:30 05:30 WBC 9.9 RBC 4.60 Hgb 14.5 Hct 43.3 MCV 94.1 H MCH 31.5 MCHC 33.5 RDW Std Deviation 45.6 H RDW Coeff of Amee 13.2 Plt Count 212 MPV 11.3 Immature Gran % (Auto) 1.100 H Neut % (Auto) 93.3 H Lymph % (Auto) 3.5 L [place] % (Auto) 2.0 Eos % (Auto) 0.0 Baso % (Auto) 0.1 Absolute Neuts (auto) 9.2 H Absolute Lymphs (auto) 0.35 L Nucleated RBC % 0 Differential Comment SCANNED PT INR Sodium 141 Potassium 4.5 Chloride 107 Carbon Dioxide 26.0 Anion Gap 8 BUN 16 Creatinine 1.07 Estim Creat Clear Calc 51.09 Est GFR (MDRD) Af Amer 86 Est GFR (MDRD) Non-Af 71 BUN/Creatinine Ratio 15.0 Glucose 184 H Calcium 8.6 Troponin I Medical Necessity - Tobacco Use Smoking Status: Current some day smoker Tobacco Use: Cigarettes Assessment/Plan All Active Problems Acute hypoxemic respiratory failure (Resolved) Pseudomonas pneumonia (Ruled-out) #1 acute exacerbation of COPD-continue present treatment at this time #2 acute hypoxia on a backdrop of chronic hypoxic respiratory failure-patient appears to be on his baseline at rest, it appears obvious the patient has minimal exercise reserve. PT and OT will work with the patient #3 hypertension #4 chronic anxiety disorder Code Visit Inpatient E&M: 11562 Subs Hosp L2
[2019-04-28] VITALS (11 sets, daily range): BP systolic 116–130; BP diastolic 65–81; PULSE 76–123; RESP 16–25; TEMP 36.4–36.7; O2SAT 96–97
[2019-04-28] MEDS: Ipratropium/Albuterol Sulfate 3 ML AMPUL.NEB INHALATION ×5 (02:28→19:19)
[2019-04-28] MEDS: LORazepam 0.5 MG Tablet PO (02:29)
[2019-04-28] MEDS: busPIRone 15 MG TABLET PO ×3 (05:40→21:30)
[2019-04-28] MEDS: 0.9% NaCl Peripheral Flush Adult/Peds IV ×2 (05:41→21:31)
[2019-04-28] MEDS: Aspirin 81 MG TAB.CHEW PO (08:42)
[2019-04-28] MEDS: Enoxaparin 40 MG/0.4 ML Syringe SC (08:42)
[2019-04-28] MEDS: Cyanocobalamin 500 MCG Tablet 2500 MCG PO (08:44)
[2019-04-28] MEDS: Ascorbic Acid 500 MG Tablet 1000 MG PO (08:44)
[2019-04-28] MEDS: Furosemide 20 MG Tablet PO (08:44)
--- NOTE | 2019-04-28 10:27 | CASEMGMT ---
RN CM Note- Anticipate Home on discharge with [facility]. Referral has been made, green sheet on chart for weekend dc instruction to [facility]. Annabel HANNAN RN ACM
--- NOTE | 2019-04-28 11:10 | EKG12_ITS ---
Test Reason : SOB/TACHY Blood Pressure : / mmHG Vent. Rate : 124 BPM Atrial Rate : 124 BPM P-R Int : 092 ms QRS Dur : 068 ms QT Int : 292 ms P-R-T Axes : 079 -57 078 degrees QTc Int : 419 ms Sinus tachycardia with short NH Right atrial enlargement Left axis deviation Nonspecific ST abnormality Abnormal ECG When compared with ECG of 26-APR-2019 20:37, MANUAL COMPARISON REQUIRED, DATA IS UNCONFIRMED Confirmed by IFEOMA PARIKH ([id number]), visual effects editor ISAIAH SMITH ([id number] on 05/09/2019 1:02:45 PM Referred By: Krzysztof Bach Confirmed By:IFEOMA PARIKH
[2019-04-28] MEDS: Finasteride 5 MG Tablet PO (11:15)
[2019-04-28] MEDS: ROFLUMILAST 500 MCG TABLET PO (11:15)
[2019-04-28] MEDS: guaiFENesin 600 MG Tablet PO (11:15)
--- NOTE | 2019-04-28 13:30 | CASEMGMT ---
Addendum entered by Efren Gaffney 04/28/19 14:58: Dr Godwin states he spoke with pt and daughter. He stated if pt is not improving enough by Wednesday, that pt will discharge to TCU instead of home w/HHC. Call placed to Lilian @ [facility]. Message left stating if pt is not improving enough by Wednesday, that pt will discharge to TCU instead of home w/HHC. Original Note: RN CM NOTE: Pt's daughter, Samantha, asked to speak to this RN DILLON. Samantha voiced concerns of pt going home @ discharge d/t his generalized weakness and decline, stating she is concerned of him falling @ home and his respiratory issues. She states feels pt would benefit from going back to TCU. She states she is aware her father would need to be agreeable and she will discuss this with him, but she wanted to know if TCU was an option before she spoke with him. Samantha made aware RN CM would talk with Dr Godwin and let him know her concerns and also will check with SW to see if there are any beds available on TCU. Dr Godwin notified of daughter's concerns and Gisselle ALAS, notified that pt's daughter is interested in pt going to TCU if he is agreeable. Ciera ANNA RN, CM
--- NOTE | 2019-04-28 14:23 | CASEMGMT ---
Addendum entered by Gisselle Knight 04/28/19 14:57: EVETTE met with pt and pt's daughter Eileen. SW explained TCU, Medicare guidelines for SNF and coverage days at SNF. Pt agreeable to TCU. EVETTE explained pt will be at [facility] until Wednesday. Pt and Eileen state understanding. Green sheet on chart. Plan: TCU Wednesday Original Note: Social Work Note Pt's daughter Eileen concerned with pt going home and asked if TCU had any beds available. EVETTE placed a call to Jimena in TCU and per Jimena she will have a bed available for pt on Wednesday. Eilene currently in talking to pt in regards to going to TCU. EVETTE waiting till Eileen is done talking with pt to determine if pt is agreeable to SNF. Plan: Possibly TCU Wednesday if pt is agreeable Gisselle Knight WINEMAKER, LIFE SKILLS TRAINER
[2019-04-28 15:26] LABS: Allen Test POS; Base Excess 1 mmol/L (-2 to +2); Bicarbonate 24.5 mmol/L (22-26); Blood Gas Specimen Type ART; O2 Delivery Device Nasal Can; PO2 93 mmHG (75-100); SITE R Radial; SO2 98 % (95-99); Time Given 1519; Total Carbon Dioxide 26 mmol/L; pH 7.45 (7.35-7.45)
--- NOTE | 2019-04-28 16:36 | PN_ITS ---
Subjective: She was seen and examined today, I had a long discussion with him as well as his daughter, his daughter is concerned that he is not able to take care of himself presently because of his pulmonary condition and his daughter requested that he consider going to TCU for short rehab services, I told the patient I felt this was a good idea overall, I told the patient that we would continue to treat him aggressively and reevaluate him over the weekend, if he did not improve by Wednesday enough to be discharged home I would recommend a short-term stay in TCU- patient agreed with this approach. I did a blood gas on the patient today because he had an episode of severe shortness of breath, the blood gas does not show any hypercapnia, the patient's PO2 was 93 on 3 L. - Physical Exam General: Alert, Oriented x3, Cooperative, No apparent distress, Well developed, Well nourished HEENT: Atraumatic, PERRLA, EOMI, Normocephalic Oral: Moist Mucosa Neck: Supple, No JVD, Trachea Midline, Thyroid Normal Size and Texture Lungs: Clear to auscultation, No rhonchi, No wheeze, No rales, Diminished Cardiovascular: Regular rate, Regular Rhythm, Normal S1, Normal S2, No murmurs, No Ectopic Activity Abdomen: Bowel Sounds Present, Soft, Non Tender, Non-Distended Extremities: No clubbing, No cyanosis, No edema, Capillary Refill Less than 3 Seconds Skin: No rashes, No breakdown Musculoskeletal: No Tenderness to Palpation of Joints or Extremities Neurological: Cranial nerves II-XII grossly intact, Neuro grossly intact, Sensory exam intact to light touch and pain Psych/Mental Status: Normal Affect, Appropriate, Alert and oriented to time, place, person, mood and affect Vital Signs Temp Pulse Resp BP Pulse Ox 98.1 F 87 20 H 130/73 H 96 04/28/19 15:00 04/28/19 15:33 04/28/19 15:33 04/28/19 15:00 04/28/19 15:33 Oxygen Flow Rate (L/min) 3 Oxygen Delivery Method Nasal Cannula Weight: 79.9 kg Body Mass Index (BMI) 29.2 Intake and Output for Last 24 Hours 04/26/19 04/27/19 04/28/19 23:59 23:59 23:59 Intake Total 1070 / 1070 240 / 240 Output Total 225 / 225 Balance 845 / 845 240 / 240 Laboratory Tests Past 24 Hrs 04/28/19 15:20 Specimen Type ART Sample Site R Radial pH 7.45 Bicarbonate Actual 24.5 POC Total CO2 26 Base Excess 1 O2 Saturation 98 ABG pCO2 35.0 ABG pO2 93 Uri Test POS O2 Delivery Device Nasal Can Liter Flow 3.0 Blood Gas Notified Whom HOSP Blood Gas Notified Time 1519 Medical Necessity - Tobacco Use Smoking Status: Current some day smoker Tobacco Use: Cigarettes Assessment/Plan All Active Problems Acute hypoxemic respiratory failure (Resolved) Pseudomonas pneumonia (Ruled-out) #1 acute exacerbation of COPD-continue present treatment at this time, I do not believe the patient needs to be placed on antibiotics at this time #2 acute hypoxia on a backdrop of chronic hypoxic respiratory failure-patient appears to be on his baseline at rest, it appears obvious the patient has minimal exercise reserve. PT and OT will work with the patient, it may be necessary for the patient to go to a short-term extended care facility for a brief stay, he is okay with this I will continue to monitor over the weekend #3 hypertension #4 chronic anxiety disorder We will place the patient on telemetry to monitor him due to complaints of tachycardia from the patient when he tries to ambulate. Code Visit Inpatient E&M: 32345 Subs Hosp L2
[2019-04-29] VITALS (12 sets, daily range): BP systolic 122–157; BP diastolic 71–84; PULSE 72–116; RESP 18–24; TEMP 36.6–36.8; O2SAT 95–96
[2019-04-29] MEDS: LORazepam 0.5 MG Tablet PO ×2 (01:12→20:09)
[2019-04-29] MEDS: Albuterol 2.5 MG/3 ML VIAL.NEB. INHALATION (01:33)
[2019-04-29] MEDS: busPIRone 15 MG TABLET PO ×3 (05:25→21:21)
[2019-04-29] MEDS: 0.9% NaCl Peripheral Flush Adult/Peds IV ×3 (05:25→21:25)
[2019-04-29] MEDS: Ipratropium/Albuterol Sulfate 3 ML AMPUL.NEB INHALATION ×5 (06:50→22:45)
[2019-04-29] MEDS: Aspirin 81 MG TAB.CHEW PO (08:10)
[2019-04-29] MEDS: Enoxaparin 40 MG/0.4 ML Syringe SC (10:49)
[2019-04-29] MEDS: Finasteride 5 MG Tablet PO (10:49)
[2019-04-29] MEDS: Cyanocobalamin 500 MCG Tablet 2500 MCG PO (10:49)
[2019-04-29] MEDS: guaiFENesin 600 MG Tablet PO (10:49)
[2019-04-29] MEDS: Furosemide 20 MG Tablet PO (10:49)
[2019-04-29] MEDS: ROFLUMILAST 500 MCG TABLET PO (10:49)
[2019-04-29] MEDS: Ascorbic Acid 500 MG Tablet 1000 MG PO (10:50)
--- NOTE | 2019-04-29 16:53 | PCM.PROGNOTE ---
Subjective: Patient was seen and examined today, he states his breathing is better today, he denies any fevers or chills. Patient denies any chest pain. - Physical Exam General: Alert, Oriented x3, Cooperative, No apparent distress HEENT: Atraumatic, PERRLA, EOMI, Normocephalic Oral: Moist Mucosa Neck: Supple, Trachea Midline, Thyroid Normal Size and Texture Lungs: No rhonchi, No wheeze, No rales, Diminished Cardiovascular: Regular rate, Regular Rhythm, Normal S1, Normal S2, No murmurs Abdomen: Bowel Sounds Present, Soft, Non Tender, Non-Distended Extremities: No clubbing, No cyanosis, No edema, Capillary Refill Less than 3 Seconds Skin: No rashes, No breakdown Musculoskeletal: No Tenderness to Palpation of Joints or Extremities Neurological: Cranial nerves II-XII grossly intact, Neuro grossly intact, Sensory exam intact to light touch and pain, Coordination normal Psych/Mental Status: Normal Affect, Appropriate, Alert and oriented to time, place, person, mood and affect Vital Signs Temp Pulse Resp BP Pulse Ox 98.2 F 104 H 20 H 122/73 H 96 04/29/19 14:09 04/29/19 14:59 04/29/19 14:59 04/29/19 14:09 04/29/19 14:09 Oxygen Flow Rate (L/min) 3 Oxygen Delivery Method Nasal Cannula Weight: 79.9 kg Body Mass Index (BMI) 29.2 Intake and Output for Last 24 Hours 04/27/19 04/28/19 04/29/19 23:59 23:59 23:59 Intake Total 1070 / 1070 730 / 730 Output Total 225 / 225 225 / 225 400 / 400 Balance 845 / 845 505 / 505 -400 / -400 Medical Necessity - Tobacco Use Smoking Status: Current some day smoker Tobacco Use: Cigarettes Assessment/Plan All Active Problems Acute hypoxemic respiratory failure (Resolved) Pseudomonas pneumonia (Ruled-out) #1 acute exacerbation of COPD-continue present treatment at this time, I do not believe the patient needs to be placed on antibiotics at this time, patient's respiratory status is improving slowly, he is moving more air today than before #2 acute hypoxia on a backdrop of chronic hypoxic respiratory failure-patient appears to be on his baseline at rest, it appears obvious the patient has minimal exercise reserve. PT and OT will work with the patient, it is planned that the patient will undergo a short inpatient stay in TCU for rehab services #3 hypertension #4 chronic anxiety disorder I do not think the patient needs telemetry any longer Code Visit Inpatient E&M: 40625 Subs Hosp L2
[2019-04-30 02:00] VITALS: BP 121/58; PULSE 100; RESP 20; TEMP 36.6; O2SAT 97
[2019-04-30] MEDS: busPIRone 15 MG TABLET PO (06:30)
[2019-04-30] MEDS: 0.9% NaCl Peripheral Flush Adult/Peds IV (06:31)
[2019-04-30 06:54] VITALS: PULSE 90; RESP 20; O2SAT 98
[2019-04-30] MEDS: Ipratropium/Albuterol Sulfate 3 ML AMPUL.NEB INHALATION ×2 (06:54→11:06)
[2019-04-30 08:14] VITALS: BP 135/65; PULSE 99; RESP 18; TEMP 36.8; O2SAT 98
[2019-04-30] MEDS: Aspirin 81 MG TAB.CHEW PO (08:16)
[2019-04-30 10:45] VITALS: PULSE 108
[2019-04-30] MEDS: Finasteride 5 MG Tablet PO (10:47)
[2019-04-30] MEDS: Ascorbic Acid 500 MG Tablet 1000 MG PO (10:48)
[2019-04-30] MEDS: ROFLUMILAST 500 MCG TABLET PO (10:48)
[2019-04-30] MEDS: Cyanocobalamin 500 MCG Tablet 2500 MCG PO (10:48)
[2019-04-30] MEDS: Furosemide 20 MG Tablet PO (10:48)
[2019-04-30] MEDS: Enoxaparin 40 MG/0.4 ML Syringe SC (10:48)
[2019-04-30] MEDS: guaiFENesin 600 MG Tablet PO (10:48)
[2019-04-30 11:06] VITALS: RESP 21
--- NOTE | 2019-04-30 11:41 | DCINST_ITS ---
- Discharge Diagnoses Current Active Problems: Current Active and Chronic Problems COPD exacerbation (Chronic) You will use the following diet at home:: No restrictions Your food should be the consistency of: Regular Your liquids should be the consistency of: Regular/Thin Discharge Activity: Return to Normal Activity Weight Bearing Status: Full weight bearing Allergies/Adverse Reactions: Allergies No Known Allergies Allergy (Verified 04/26/19 19:59) Medications to take at Discharge Aspirin [Aspirin, Baby] 81 mg PO DAILY@0800 10/13/16 Omeprazole 20 mg PO PRN PRN 10/13/16 Albuterol Aerosols [Ventolin Aerosols] 2.5 mg INHALATION Q2H PRN PRN #0 vial.neb. 10/21/16 Ascorbic Acid [Vitamin C] 1,000 mg PO DAILY 03/29/17 Cyanocobalamin (Vitamin B-12) [Vitamin B-12] 2,500 mcg PO DAILY 03/29/17 Finasteride [Proscar] 5 mg PO DAILY 03/29/17 Guaifenesin [Mucinex] 600 mg PO DAILY 03/29/17 Multivitamin [Daily Multiple Vitamin] 1 each PO DAILY 03/29/17 Fluticasone/Vilanterol [Breo Ellipta 200-25 Mcg INH] 1 puff IH DAILY 04/26/19 Furosemide [Lasix] 20 mg PO DAILY 04/26/19 Lorazepam [Ativan] 0.5 mg PO BID PRN PRN 04/26/19 Roflumilast [Daliresp] 500 mcg PO DAILY 04/26/19 Umeclidinium [place] [Incruse Ellipta] 1 puff IH DAILY 04/26/19 busPIRone [Buspar] 15 mg PO TID 04/26/19 Prednisone 10 mg PO UD #30 tab 04/30/19 The following prescriptions were given: Prednisone 10 mg PO UD #30 tab Prescription Printed Primary Care Physician: Joe Day DO [Primary Care Provider] - Please follow up with your Primary Care Physician in: in 2-3 weeks Test Results: Test results from this visit will be discussed in further detail at your follow- up appointment, if applicable. Please Follow Up With: Joe Flores MD When: in 1-2 weeks
--- NOTE | 2019-04-30 12:19 | NURSING ---
patient to be discharged home with home health. discharge instructions/medication list faxed to [facility]. on-call nurse paged hot saw operator to notify of impending discharge.
[2019-04-30] MEDS: LORazepam 0.5 MG Tablet PO (12:35)
[2019-04-30 12:36] VITALS: BP 150/86; PULSE 97; RESP 18; TEMP 36.6; O2SAT 97
--- NOTE | 2019-04-30 18:55 | PCM.DC.SUM ---
Discharge Date and Diagnosis Date of Admission: 04/26/19 Date of Discharge: 04/30/19 - Primary Discharge Diagnosis #1 acute exacerbation of COPD #2 acute hypoxia on a backdrop of chronic hypoxic respiratory failure #3 hypertension #4 chronic anxiety disorder - Secondary Discharge Diagnosis Chronic Problems COPD exacerbation (Chronic) COPD (chronic obstructive pulmonary disease) (Chronic) Home oxygen for 5 years. Hypertension (Chronic) Allergic rhinitis (Chronic) Anxiety (Chronic) Hypomagnesemia (Chronic) GERD (gastroesophageal reflux disease) (Chronic) BPH (benign prostatic hypertrophy) (Chronic) Vitamin D deficiency (Chronic) Thoracic aortic aneurysm without rupture (Chronic) 4.3CM. Hospital Course and Treatment Operations: None Procedures: None Summary of Care Provided: The patient is a 74 year old M who was seen in the emergency room at [facility] with a chief complaint of shortness of breath which started on the day was seen in the emergency room. Patient has a long history of COPD, he is on home O2, he is on chronic home aerosol treatments and he was on prednisone also. Work-up in the emergency room included a chest x-ray which showed COPD and scarring in the right middle lobe, COPD showed a mild leukocytosis at 12.6-this is probably secondary to outpatient steroid usage. Metabolic profile was normal. Patient's O2 requirement was 2 to 3 L in the emergency room. Patient was admitted to [place] [address], started on IV corticosteroids, aggressive aerosol treatments, and monitored. Patient had episodes where he felt acutely short of breath while ambulating during the first 48 hours in the hospital, discussions were carried out with the patient's daughter about whether the patient should go to an extended care facility at the time of discharge for further monitoring-patient initially agreed to do this and over the next 2 to 3 days see improved and there were no complications. On 04/30/2019, patient was seen and examined: On examination he appeared in good health and spirits. Vital signs as documented. Skin warm and dry and without overt rashes. Neck without JVD. Lungs decreased breath sounds bilaterally. Heart exam notable for regular rhythm, normal sounds and absence of murmurs, rubs or gallops. Abdomen unremarkable and without evidence of organomegaly, masses, or abdominal aortic enlargement. Extremities nonedematous. Neuro: Cranial nerves II through XII are grossly intact, no focal motor deficits were noted, sensation to light touch and pinprick intact. Psych: Patient is alert and oriented x3, he does not appear anxious or depressed On 04/30/2019, patient was seen and examined, at that time he felt he was at his baseline and he requested discharge to home rather than go to a shelter. He was discharged home in stable condition on 04/30/2019. Patient requested home nursing care, he was evaluated on 04/30/2019 and felt to benefit from home nursing care, this was supposed to be set up the week of 05/01/2019-PT and OT. - Physical Exam Vital Signs Temp Pulse Resp BP Pulse Ox 97.9 F 97 18 150/86 H 97 04/30/19 12:36 04/30/19 12:36 04/30/19 12:36 04/30/19 12:36 04/30/19 12:36 Oxygen Flow Rate (L/min) 3 Oxygen Delivery Method Nasal Cannula Weight: 79.9 kg Body Mass Index (BMI) 29.2 Intake and Output for Last 24 Hours 04/28/19 04/29/19 04/30/19 23:59 23:59 23:59 Intake Total 730 / 730 780 / 780 Output Total 225 / 225 400 / 400 Balance 505 / 505 -400 / -400 780 / 780 Discharge Activity: Return to Normal Activity Weight Bearing Status: Full weight bearing Home Medications: Medications to take at Discharge Aspirin [Aspirin, Baby] 81 mg PO DAILY@0800 10/13/16 Omeprazole 20 mg PO PRN PRN 10/13/16 Albuterol Aerosols [Ventolin Aerosols] 2.5 mg INHALATION Q2H PRN PRN #0 vial.neb. 10/21/16 Ascorbic Acid [Vitamin C] 1,000 mg PO DAILY 03/29/17 Cyanocobalamin (Vitamin B-12) [Vitamin B-12] 2,500 mcg PO DAILY 03/29/17 Finasteride [Proscar] 5 mg PO DAILY 03/29/17 Guaifenesin [Mucinex] 600 mg PO DAILY 03/29/17 Multivitamin [Daily Multiple Vitamin] 1 each PO DAILY 03/29/17 Fluticasone/Vilanterol [Breo Ellipta 200-25 Mcg INH] 1 puff IH DAILY 04/26/19 Furosemide [Lasix] 20 mg PO DAILY 04/26/19 Lorazepam [Ativan] 0.5 mg PO BID PRN PRN 04/26/19 Roflumilast [Daliresp] 500 mcg PO DAILY 04/26/19 Umeclidinium [place] [Incruse Ellipta] 1 puff IH DAILY 04/26/19 busPIRone [Buspar] 15 mg PO TID 04/26/19 Prednisone 10 mg PO UD #30 tab 04/30/19 Following Prescrptions Were Given to Patient: Prednisone 10 mg PO UD #30 tab Prescription Printed Primary Care Physician: Joe Day DO [Primary Care Provider] - Please follow up with your Primary Care Physician in: in 2-3 weeks Please Follow Up With: Joe Flores MD When: in 1-2 weeks Disposition: Home with Home Health Minutes spent on discharge:: 32 Patient Condition:: Stable Medical Necessity - Tobacco Use Smoking Status: Current some day smoker Tobacco Use: Cigarettes Meaningful Use Info Meaningful Use Diagnoses (Choose all that apply): None applicable Code Visit Inpatient E&M: 27092 Disch Hosp
--- NOTE | 2019-05-03 13:17 | CASEMGMT ---
SW received a call from [employer], he will be starting to receive meals as of 05/08/19. SANDRA Ortiz
== END 2019-04-30 13:45 | disposition home or self-care (01) | DRG 191 ==
LOC: ED 04-27 00:03 → MS3 04-27 01:00
PROVIDERS: Admitting Provider Hospitalist; Emergency Provider Emergency Medicine; Family Provider Preventive Medicine Occupational Medicine; PCP Preventive Medicine Occupational Medicine; Referring Provider Hospitalist; Visit Provider Internal Medicine
DX: J44.1 Chronic obstructive pulmonary disease with (acute) exacerbation (principal); J96.11 Chronic respiratory failure with hypoxia; N40.0 Benign prostatic hyperplasia without lower urinary tract symptoms; I10 Essential (primary) hypertension; F17.210 Nicotine dependence, cigarettes, uncomplicated; Z99.81 Dependence on supplemental oxygen; Z92.3 Personal history of irradiation; Z85.46 Personal history of malignant neoplasm of prostate; I71.2 Thoracic aortic aneurysm, without rupture; K21.9 Gastro-esophageal reflux disease without esophagitis
CPT/HCPCS: 36415; 36600; 71045; 80048; 82803; 84484; 85025; 85610; 93005; 94003; 94640; 94660; 97162; 97166; 97530; 97535; 99285; J7030; A4216

== ENCOUNTER 2019-06-20 17:25 | Emergency (ER) | payer MEDICARE, MEDICAID, SELFPAY ==
[2019-04-27 01:27] VITALS: BMI 29.2
[2019-06-20] VITALS (9 sets, daily range): BP systolic 111–145; BP diastolic 70–80; PULSE 75–99; RESP 16–24; TEMP 36.6; O2SAT 96–98; BMI 31.6
--- NOTE | 2019-06-20 18:10 | RAD_ITS ---
STUDY: X-RAY CHEST REASON FOR EXAM: Male, 74 years old. COPD and SOB TECHNIQUE: Single frontal view of the chest. COMPARISON: None. FINDINGS: Calcified granuloma in the right upper lobe. The lungs are clear and expanded. There is no demonstrated pleural abnormality. Normal size heart. Normal mediastinum and renay. Normal visualized pulmonary arteries. Normal visualized aortic arch and descending thoracic aorta. Normal visualized thoracic spine. Degenerative left shoulder change. There is no demonstrated abnormality of the visualized soft tissue structures of the upper abdomen. RAD/Chest 1 View (Portable) IMPRESSION: No acute pulmonary findings. Electronically Signed: Tushar Robertson MD at 18:34 EDT Tel , Service support ,
--- NOTE | 2019-06-20 18:10 | EKG12_ITS ---
Test Reason : SOB Blood Pressure : / mmHG Vent. Rate : 082 BPM Atrial Rate : 082 BPM P-R Int : 124 ms QRS Dur : 066 ms QT Int : 354 ms P-R-T Axes : 073 034 069 degrees QTc Int : 413 ms Normal sinus rhythm Normal ECG Confirmed by IFEOMA PARIKH ([id number]), acquisitions editor SANDER PINO ([id number]) on 06/26/2019 8:50:00 AM Referred By: Confirmed By:IFEOMA PARIKH
--- NOTE | 2019-06-20 18:13 | ED.DCSUM_ITS ---
- ER Visit Summary Date of Service: 06/20/19 Chief Complaint: Shortness of breath History of Present Illness: The patient is a 74 M presenting with shortness of breath. He states this started today gradually. He denies cough. He states he started getting progressively short of breath. He has an oxygen mask that goes up to 3 L which he used at home. He chronically wears 2 L nasal cannula. He also took an Ativan which improved his symptoms. He has a history of anxiety, COPD. Denies chest pain. Denies PE/DVT risk factors. He is a previous smoker. He is currently on a prednisone taper per Dr. Flores. Physical Examination: Vitals are stable. Patient is afebrile. Alert no acute distress. Pulse ox 97% on 2 L HEENT exam is unremarkable. Neck is supple. Lungs are diminished bilaterally. No retractions or accessory muscle use. Heart is regular rate and rhythm. Abdomen is soft nontender nondistended. Extremities are unremarkable. Skin is warm and dry. No focal neurologic deficit. Remainder of exam is unremarkable. Emergency Department Course and Treatment: Patient was given albuterol, Atrovent aerosol. EKG is sinus rate of 82 with no acute ischemic changes. Chest x-ray shows no acute process. CBC, chemistries unremarkable. Troponin is negative. Patient was able to ambulate in the ED without difficulty. Repeat troponin is negative. Patient is resting comfortably on reevaluation. He feels improved. He is comfortable with discharge home. He will follow-up with his primary care physician and his business programmer. He is advised to continue his prednisone taper until complete. Advised to return to ED if worsening complaints. Disposition: Discharge home Impression: Dyspnea, COPD, anxiety This note was generated with [employer]sil[employer] dictation software. It may contain incorrect words, spelling, and punctuation that were not noted in review of the chart prior to signing ED Disposition - Plan for ED Patient: Instructions: [facility]d Flare Referrals: Joe Day DO [Primary Care Provider] - Joe Flores MD [STAFF PHYSICIAN] -
[2019-06-20 18:25] LABS: Absolute Lymphocyte Count 0.44 X10^3/uL (0.83-4.51); Absolute Neutrophil Count 13.1 X10^3/uL (2.0-7.7); Basophil# 0.05 X10^3/uL; Basophil% 0.4 % (0-1); Eosinophil# 0.04 X10^3/uL; Eosinophils% 0.3 % (0-5); Hematocrit 44.4 % (40-54); Hemoglobin 14.3 g/dL (13.0-16.5); Lymphocyte # 0.44 X10^3/ul (4.0); Lymphocyte % 3.1 % (19-41); Mean Corp Hgb Conc 32.2 g/dL (32-36); Mean Corpuscular Hgb 31.6 pg (27.0-32.0); Mean Platelet Vol. 11.3 fl (6.2-12.0); Monocyte# 0.37 X10^3/uL; Monocyte% 2.6 % (0-10); NRBC Flagged by Analyzer 0 % (0-5); Neutrophil # 13.08 X10^3/uL (2.7-7.7); Neutrophil % 92.4 % (47-70); POSITIVE DIFFERENTIAL YES; Platelet Count 190 K/mm3 (150-450); RBC Distribution Width CV 13.8 % (11.6-14.6); RBC Distribution Width SD 50.1 fl (35.1-43.9); Red Blood Count 4.53 M/mm3 (4.6-6.2); White Blood Count 14.2 K/mm3 (4.4-11.0)
[2019-06-20] MEDS: Ipratropium/Albuterol Sulfate 3 ML AMPUL.NEB INHALATION (18:27)
[2019-06-20] MEDS: Albuterol 2.5 MG/3 ML VIAL.NEB. INHALATION ×2 (18:27)
[2019-06-20 18:28] LABS: Differential Indicated SCAN CRITERIA MET
[2019-06-20 18:43] LABS: Anion Gap 8 (5-15); BUN 20 mg/dL (7-18); BUN/Creat Ratio 20.2 RATIO (10-20); Calcium,Total 8.9 mg/dL (8.5-10.1); Chloride 103 mmol/L (98-107); Creatinine, Serum 0.99 mg/dL (0.70-1.30); EST Glomerular Filtration Rate 78 mL/min (>60); Est Glom Filt Rate - Afr Amer 95 mL/min (>60); Estimated Creatinine Clearance 55.22 ml/min; Glucose 118 mg/dL (74-106); Sodium Level 140 mmol/L (136-145)
[2019-06-20 19:14] LABS: Differential Comment SCANNED
== END 2019-06-20 22:47 | disposition home or self-care (01) ==
LOC: ED 18:14
PROVIDERS: Emergency Provider Emergency Medicine; Family Provider Preventive Medicine Occupational Medicine; PCP Preventive Medicine Occupational Medicine
DX: J44.9 Chronic obstructive pulmonary disease, unspecified (principal); F41.9 Anxiety disorder, unspecified; R06.00 Dyspnea, unspecified; Z87.891 Personal history of nicotine dependence
CPT/HCPCS: 71045; 80048; 84484; 85025; 93005; 94640; 99285; A4216

== ENCOUNTER → 2019-07-05 13:43 | Outpatient (CLI) | payer MEDICARE, MEDICAID, SELFPAY ==
[2019-06-20 17:25] VITALS: BMI 31.6
[2019-07-05 15:49] LABS: Anion Gap 9 (5-15); Chloride 103 mmol/L (98-107); Potassium 3.9 mmol/L (3.5-5.1); Sodium Level 140 mmol/L (136-145)
[2019-07-06 07:06] LABS: Base Excess 0 mmol/L (-2 to +2); Bicarbonate 23.5 mmol/L (22-26); Blood Gas Specimen Type ART; O2 Delivery Device Room Air; PO2 70 mmHG (75-100); SITE R Brachial; SO2 95 % (95-99); Time Given 1439; Total Carbon Dioxide 24 mmol/L; pCO2 32.4 mmHg (35-45); pH 7.47 (7.35-7.45)
== END ==
PROVIDERS: Family Provider Preventive Medicine Occupational Medicine; PCP Preventive Medicine Occupational Medicine; Referring Provider Internal Medicine Pulmonary Disease; Visit Provider Internal Medicine Pulmonary Disease
DX: J96.90 Respiratory failure, unspecified, unspecified whether with hypoxia or hypercapnia (principal); J44.9 Chronic obstructive pulmonary disease, unspecified; G47.33 Obstructive sleep apnea (adult) (pediatric)
CPT/HCPCS: 36415; 36600; 80051; 82803

== ENCOUNTER → 2019-08-03 14:46 | Outpatient (CLI) | payer MEDICARE, MEDICAID, SELFPAY ==
[2019-06-20 17:25] VITALS: BMI 31.6
== END ==
PROVIDERS: Family Provider Preventive Medicine Occupational Medicine; PCP Preventive Medicine Occupational Medicine; Referring Provider Urology; Visit Provider Urology
DX: C61 Malignant neoplasm of prostate (principal)
CPT/HCPCS: 36415; 84153; 84403

== ENCOUNTER → 2020-02-22 | Outpatient (CLI) | payer SELFPAY ==
[2019-06-20 17:25] VITALS: BMI 31.6
[2020-02-22 16:35] LABS: PSA,Total- Diagnostic 0.09 ng/mL (0.0-4.0)
== END | disposition home or self-care (01) ==
LOC: LAB 14:07
PROVIDERS: PCP Preventive Medicine Occupational Medicine; Referring Provider Urology; Visit Provider Urology
DX: C61 Malignant neoplasm of prostate (principal)
CPT/HCPCS: 36415; 84153

== ENCOUNTER → 2020-07-10 16:34 | Outpatient (CLI) | payer MEDICARE, SELFPAY ==
[2019-06-20 17:25] VITALS: BMI 31.6
[2020-07-10 18:08] LABS: PSA,Total- Diagnostic 0.21 ng/mL (0.0-4.0)
== END ==
PROVIDERS: PCP Preventive Medicine Occupational Medicine; Visit Provider Radiology Radiation Oncology
DX: Z85.46 Personal history of malignant neoplasm of prostate (principal)
CPT/HCPCS: 36415; 84153